=== PATIENT | male | born 1945 | race African-American/Black ===

== ENCOUNTER 2023-08-12 07:51 | Emergency (ER) | payer MEDICARE ==
[~2023-08-12] VITALS: Ht 167.6 cm; Wt 73.0 kg
[2023-08-12 07:57] VITALS: BP 111/54; PULSE 65; RESP 19; TEMP 98.6; O2SAT 99
[2023-08-12 08:49] LABS: BASOPHILS % 0.3 % (0.0-2.0); HEMOGLOBIN. 11.3 g/dL (14.0-18.0); LYMPHOCYTES % 36.7 % (20.0-50.0); MEAN CORPUSCULAR HEMOGLOBIN 26.4 pg (28.0-32.0); MEAN CORPUSCULAR HGB CONC 32.4 g/dL (31.0-37.0); MEAN CORPUSCULAR VOLUME 81.6 fL (80.0-94.0); PLATELET 184 x1000/uL (130-400); RED BLOOD CELL COUNT 4.29 mill/uL (4.7-6.1); RED CELL DISTRIBUTION WIDTH 14.8 % (11.6-14.6); WHITE BLOOD COUNT 5.4 x1000/uL (4.5-11.0)
[2023-08-12 08:50] LABS: ALANINE AMINOTRANSFERASE 16 IU/L (10-49); ALBUMIN 4.2 g/dL (3.2-4.8); ASPARTATE AMINOTRANSFERASE 23 IU/L (<34); CHLORIDE 110 mEq/L (98-107); POTASSIUM 4.8 mEq/L (3.5-5.1); SODIUM 138 mEq/L (136-145)
[2023-08-12 08:51] LABS: CALCIUM 9.1 mg/dL (8.7-10.4); CARBON DIOXIDE 23 mEq/L (21-32)
[2023-08-12 08:56] LABS: CREATININE 2.5 mg/dL (0.6-1.3); GLUCOSE 102 mg/dL (70-105); INR 0.9; PROTHROMBIN TIME 10.2 sec (9.6-11.0); UREA NITROGEN BLOOD 41 mg/dL (9-23)
[2023-08-12 08:58] LABS: BILIRUBIN TOTAL 0.4 mg/dL (0.1-1.0); PROTEIN TOTAL 7.3 g/dL (6.0-8.3)
== END 2023-08-12 10:30 | disposition home or self-care (01) ==
LOC: ER 07:51
DX: H11.31 Conjunctival hemorrhage, right eye (principal); E11.9 Type 2 diabetes mellitus without complications
CPT/HCPCS: 36415; 80053; 85025; 99283